=== PATIENT | female | born 1980 | race African-American/Black ===

== ENCOUNTER 2023-05-16 05:52 | Emergency (ER) | payer BC ==
[2023-05-16 06:17] VITALS: BMI 39.0
[2023-05-16 06:46] LABS: VENOUS BASE EXCESS -1.2 mmol/L (-2-2); VENOUS PCO2 45.5 mmHg (38-52); VENOUS PH 7.349 (7.310-7.410)
[2023-05-16 07:01] LABS: HEMATOCRIT 28.6 % (32.4-45.2); MCH 20.1 pg (25.7-33.7); MCHC 31.5 g/dl (32.0-36.0); MEAN CELL VOLUME 63.7 fl (80-96); MEAN PLT VOLUME 8.4 fl (7.5-11.1); PLATELET COUNT 356 10^3/uL (134-434); RBC 4.49 M/mm3 (3.60-5.2); RDW 22.2 % (11.6-15.6); WHITE BLOOD COUNT 11.5 K/mm3 (4.0-10.0)
[2023-05-16 07:05] LABS: CHLORIDE 103 mmol/L (98-107); POTASSIUM 4.3 mmol/L (3.5-5.1); SODIUM 136 mmol/L (136-145)
[2023-05-16 07:07] LABS: ALBUMIN 3.4 g/dl (3.4-5.0); ANION GAP 9 MMOL/L (8-16); CALCIUM 9.1 mg/dL (8.5-10.1); CO2 24 mmol/L (21-32); GLUCOSE,RANDOM 174 mg/dL (74-106)
[2023-05-16 07:08] LABS: BLOOD UREA NITROGEN 15.1 mg/dL (7-18)
[2023-05-16 07:10] LABS: CREATININE 1.1 mg/dL (0.55-1.3)
[2023-05-16 07:11] LABS: SGOT/AST 33 U/L (15-37); SGPT/ALT 17 U/L (13-61)
[2023-05-16 07:12] LABS: BILIRUBIN,TOTAL 0.2 mg/dL (0.2-1); TOT PROT 8.3 g/dl (6.4-8.2)
[2023-05-16 07:13] LABS: ALK PHOS 57 U/L (45-117)
[2023-05-16 08:10] LABS: URINE APPEARANCE CLEAR; URINE BILIRUBIN NEGATIVE (NEGATIVE); URINE COLOR YELLOW; URINE GLUCOSE (UA) NEGATIVE (NEGATIVE); URINE KETONE NEGATIVE (NEGATIVE); URINE LEUK ESTERASE NEGATIVE (NEGATIVE); URINE NITRITE NEGATIVE (NEGATIVE); URINE PROTEIN TRACE (NEGATIVE)
[2023-05-16 08:18] VITALS: TEMP 98.1
[2023-05-16 08:29] LABS: OPIATES, URI NEGATIVE (NEGATIVE)
[2023-05-16 08:31] LABS: COCAINE, UR NEGATIVE (NEGATIVE); PHENCYCLIDINE,URINE NEGATIVE (NEGATIVE); URINE AMPHETAMINES NEGATIVE (NEGATIVE); URINE BARBITURATES NEGATIVE (NEGATIVE); URINE BENZODIAZEPINES NEGATIVE (NEGATIVE)
[2023-05-16 08:32] LABS: METHADONE, UR NEGATIVE (NEGATIVE)
[2023-05-16 08:37] LABS: ANISOCYTOSIS 2+; MACROCYTOSIS 0
[2023-05-16] MEDS ORDERED: ACETAMINOPHEN 1000 MG/100 ML BAG IVPB ONE (09:09)
[2023-05-16] MEDS ORDERED: ACETAMINOPHEN INJECTION 100 ML IVPB ONE (09:17)
[2023-05-16 10:12] VITALS: BP 131/72; PULSE 92; RESP 18
== END 2023-05-16 13:02 | disposition short-term general hospital (02) ==
LOC: JER 05:52
PROC: 3E033NZ Introduction of Analgesics, Hypnotics, Sedatives into Peripheral Vein, Percutaneous Approach (ICD-10-PCS; principal; 2023-05-16)
DX: R51.9 Headache, unspecified (principal); T58.94XA Toxic effect of carbon monoxide from unspecified source, undetermined, initial encounter; R79.89 Other specified abnormal findings of blood chemistry
CPT/HCPCS: 36415; 70450-TC; 71045-TC-FY; 80053; 80307; 81003; 82140; 82375; 82803; 83605; 84484; 85025; 87086; 93005; 93010; 99285-25